=== PATIENT | female | born 1980 | race Caucasian/White ===

== ENCOUNTER 2024-05-14 15:21 | Inpatient (IN) | payer MEDICAID, SELFPAY ==
[2024-05-14 15:22] VITALS: BP 154/97; PULSE 102; RESP 16; TEMP 36.8; O2SAT 97
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
--- NOTE | 2024-05-14 16:07 | PC.PHAR ---
Pt states she takes Risperidone and Trazodone (don't know what strength) and fills them at [facility] in [facility] [phone]. They have no such pt in their system. Pt is not in [facility] system, either.
[2024-05-14 16:18] LABS: Basophils # 0.1 10^3/uL (0.0-0.1); Basophils % 0.7 %; Eosinophils # 0.2 10^3/uL (0.0-0.8); Eosinophils % 2.1 %; Hematocrit 44.1 % (36-47); Lymphocytes # 2.2 10^3/uL (0.8-4.8); Lymphocytes % 21.5 %; Mean Corpuscular HGB Conc 31.1 g/dL (30-55); Mean Platelet Volume 9.3 fL (7.4-10.4); Monocytes # 0.6 10^3/uL (0.2-0.9); Monocytes % 5.7 %; Neutrophils # 7.24 10^3/uL (1.8-7.7); Neutrophils % 69.3 %; Nucleated Red Blood Cells % 0 %; Platelet Count 339 10^3/cmm (157-399); Red Blood Count 5.07 10^6/uL (3.85-5.65); Red Cell Distribution Width 15.4 % (12.1-15.1); White Blood Count 10.44 10^3/uL (3.29-11.43)
[2024-05-14 16:35] LABS: HCG, Serum Qual Negative (Negative)
[2024-05-14 16:36] LABS: Alanine Aminotransferase 11 U/L (0-33); Alkaline Phosphatase 87 U/L (35-105); Anion Gap 14.7 (5-19); Aspartate Amino Transferase 13 U/L (0-32); Blood Urea Nitrogen 12 mg/dL (6-20); Calcium 9.4 mg/dL (8.5-10.5); Carbon Dioxide 24 mmol/L (22-29); Chloride 103 mmol/L (98-107); Globulin 4.1 g/dL (1.3-4.6); Glomerular Filtration Rate 90.5 mL/min (90-130); Glucose 105 mg/dL (65-115); Osmolality Calculated 286 mOsm/kg (285-295); Potassium 3.7 mmol/L (3.5-5.1); Sodium 138 mmol/L (136-145); Total Bilirubin 0.2 mg/dL (0.15-1.2); Total Protein 8.1 g/dL (6.6-8.7)
[2024-05-14 16:39] LABS: Acetaminophen < 5.0 ug/mL (10-30); Alcohol Level < 10 mg/dL (0-10); Salicylate < 0.3 mg/dL (3-10)
[2024-05-14 17:11] VITALS: BP 103/74; PULSE 96; RESP 17; TEMP 37; O2SAT 97
[2024-05-14 17:20] LABS: Amphetamines Screen Urine Negative (Negative); Barbiturates Screen Urine Negative (Negative); Benzodiazepines Screen Urine Negative (Negative); Cocaine Screen Urine Negative (Negative); Opiate Screen Urine Negative (Negative); PCP Screen Urine Negative (Negative); THC Screen Urine Negative (Negative)
[2024-05-14] MEDS: nicotine 2 mg Gum BUCCAL ×2 (17:52→20:19)
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
--- NOTE | 2024-05-14 18:13 | PC.NURSE ---
96 hr rights reviewed with patient @1640 with assistance of [facility] gunnery/ordnance officer Gato Bettencourt All education reviewed. Pt did not seem to fully understand the hold parameters of the 96 hr hold, but verbalized to HS that she did understand when she was asked. Pt copy was left with patient. Pt provided a sandwich, pudding, and soda.
--- NOTE | 2024-05-14 18:33 | PC.NURSE ---
RT order This nurse placed RT order for eval and treat because patient has asthma and states that she uses inhalers at home. Patient unable to tell this nurse what inhalers she uses. Patient has a wet cough. Wheezes heard in lungs.
[2024-05-14] MEDS: hyDROXYzine 25 mg Capsule 50 MG PO (20:19)
[2024-05-14] MEDS: trazodone 100 mg Tablet 200 MG PO (20:19)
[2024-05-14 20:25] VITALS: BP 159/75; PULSE 95; RESP 20; TEMP 36.9; O2SAT 97
[2024-05-14 20:54] LABS: Bilirubin Urine 1+ (Negative); Blood Urine 3+ (Negative); Glucose Urine UA Negative (Normal); Ketones Urine Negative (Negative); Leukocyte Esterase Urine 1+ (Negative); Protein Urine 2+ (Negative); Specific Gravity, Urine 1.014 (1.005-1.030); Urine Appearance Turbid (CLEAR); Urobilinogen Urine 0.2 mg/dL (Negative); pH Urine 8.5 (5-7)
[2024-05-14 20:57] LABS: Add Urine Microscopic? YES; Bacteria Urine 1+ /hpf; Hyaline Casts Urine 0-4 /lpf; RBC Urine >100 /hpf (0-2); Squamous Epithelial Cell Urine 0-5 /hpf (0-5)
[2024-05-14 21:24] LABS: Urine Color Red (Yellow)
[2024-05-14 21:25] LABS: Add Urine Culture? Yes; Nitrate Urine Negative (Negative); UA Slide Review UA Slide Review Perf
[2024-05-14] MEDS: guaiFENesin-dextromethorphan UDC 10 mL PO (21:54)
[2024-05-15 06:00] VITALS: BP 133/69; PULSE 94; RESP 18; TEMP 36.4; O2SAT 98
[2024-05-15] MEDS: nicotine 2 mg Gum BUCCAL ×4 (06:40→16:36)
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
[2024-05-15] MEDS: risperiDONE 2 mg Tablet PO (08:34)
[2024-05-15] MEDS: flu vacc pf 24-25 (6 mos+) SYRINGE 45 MCG IM (08:43)
[2024-05-15 14:00] VITALS: BP 143/82; PULSE 92; RESP 17; TEMP 36.7; O2SAT 98
[2024-05-15 20:11] VITALS: BP 130/76; PULSE 106; RESP 20; TEMP 36.7; O2SAT 99
[2024-05-15] MEDS: trazodone 100 mg Tablet 200 MG PO (20:14)
[2024-05-15] MEDS: nicotine 4 mg lozenge MUCOUS MEM (20:14)
[2024-05-15 22:54] LABS: Adenovirus Not Detected (NOT DETECT); Chlamydia Pneumoniae Not Detected (NOT DETECT); Coronavirus 229E,HKU1,NL63,OC4 Not Detected (NOT DETECT); Human Metapneumovirus Not Detected (NOT DETECT); Human Rhinovirus/Enterovirus Not Detected (NOT DETECT); Influenza A Not Detected (NOT DETECT); Influenza A H1 Not Detected (NOT DETECT); Influenza A H1-2009 Not Detected (NOT DETECT); Influenza A H3 Not Detected (NOT DETECT); Influenza B Not Detected (NOT DETECT); Mycoplasma Pneumoniae Not Detected (NOT DETECT); Parainfluenza Virus Type 1 Not Detected (NOT DETECT); Parainfluenza Virus Type 2 Not Detected (NOT DETECT); Parainfluenza Virus Type 3 Not Detected (NOT DETECT); Parainfluenza Virus Type 4 Not Detected (NOT DETECT); Respiratory Syncytial Virus A Not Detected (NOT DETECT); Respiratory Syncytial Virus B Not Detected (NOT DETECT); SARS-COV-2 Not Detected (NOT DETECT)
[2024-05-16 06:00] VITALS: BP 168/95; PULSE 90; RESP 20; O2SAT 94
[2024-05-16] MEDS: risperiDONE 2 mg Tablet PO (07:58)
[2024-05-16] MEDS: nicotine 4 mg lozenge MUCOUS MEM (08:00)
[2024-05-16] MEDS: nicotine 2 mg Gum BUCCAL ×5 (09:22→22:01)
[2024-05-16] MEDS: paliperidone ER 3 mg Tablet PO (13:09)
[2024-05-16 14:00] VITALS: BP 148/91; PULSE 101; RESP 18; TEMP 36.3; O2SAT 98
--- NOTE | 2024-05-16 20:14 | P.NPUPN_ITS ---
Subjective NPU 2 Subjective: Patient presented today reporting that things are okay. She reports she is having no issues but is open to the medication change. We talked about having a better stop at a good medication plan if we were on the Invega. Spoke to her family about that. She continues to be fairly childlike in her behavior per staff reports and direct observation. She denied any side effects to the medication. Mental Status Exam 2 MSE Comments: This is a morbidly obese white female in hospital scrubs with limited grooming but adequate eye contact. No abnormal movements except for mild psychomotor retardation. Cooperative with exam in mild to moderate distress. Speech was mostly decreased rate and volume. Mood described as anxious, affect is congruent. Thought process, disorganized. Thought content: patient denies suicidal or homicidal ideation, paranoia reported and paranoia and guardedness as well as bizarre thinking noted, she denies current auditory or visual hallucinations. No current thoughts to hurt or kill self or others. No visual hallucinations, delusions, or paranoia reported. Experiences anxiety, particularly in relation to daily activities. Mood reported as good. Stress related to interactions with mother and need for medication. Attention and concentration are intact and memory appeared mostly reliable , but none were formally tested. She is alert and oriented x person. Insight and judgment are impaired. Impulse control is impaired. Vitals/I&O/Wt Last Vital Signs Temp 97.3 F L 05/16/24 14:00 Pulse 101 H 05/16/24 14:00 Resp 18 05/16/24 14:00 BP 148/91 05/16/24 14:00 Pulse Ox 98 05/16/24 14:00 O2 Del Method Room Air 05/16/24 06:00 Data NPU 05/14/24 16:08 05/14/24 16:08 Micro: Microbiology 05/14/24 20:30 Urine Culture - Preliminary Urine,Clean Catch Microbiology 05/14/24 20:30 Urine,Clean Catch Urine Culture - Preliminary A&P Assessment and plan (1) Psychosis: Qualifiers: Psychosis type: unspecified psychosis type Qualified Code(s): F29 - Unspecified psychosis not due to a substance or known physiological condition (2) Mild intellectual disability: (3) Anxiety disorder, unspecified: Plan This is a 43-year-old white woman with a history of intellectual disability and impulse control issues who presents after some aggressive behavior at home. There is a need for medication management, as the patient has been on medications such as Risperdal, trazodone, and Buspar in the past but currently not taking any and is not being seen at a clinic per her report. There is no history of psychiatric hospitalization or outpatient mental health services, and the patient has not engaged with a therapist or counselor previously. The patient is currently on a 96-hour hold, which is set to on May 21, 2024, indicating a need for stabilization and a plan for discharge. There is no evidence of aggression, paranoia, or self-injurious behavior, and the patient denies any current thoughts of self-harm or harm to others. 1. Continue current medications. Discontinue Risperdal and start Invega 3 mg p.o. daily 2. Will obtain collateral information. 3. Continue individual, group and milieu therapy. 4. Continue every 15 minute checks for safety. 5. Will talk to mom for collateral information and to help with medical decision making. Patient's does not have a guardian but appears to have intellectual limitations. Involuntary Hold Information 2 96 Hour Hold: 96 Hour Involuntary Admission: Yes 96 Hour Hold Ending Date: 05/21/24 96 Hour Hold Ending Time: 15:24 Other Hold: Hold End Date: 05/21/24 Attestations NPU 2 Medical Necessity Statement*: Inpatient hospitalization is medically necessary and the clinically appropriate intervention at this time. We will monitor medications and make changes as indicated. Likely length of stay is 5-7 days. Coding Level of Care Code Acute Code for g Fwd Diagnoses Psychosis F29 Psychosis type: unspecified psychosis type Mild intellectual disability F70 Anxiety disorder, unspecified F41.9
[2024-05-16 20:21] VITALS: BP 138/94; PULSE 105; RESP 18; TEMP 36.6; O2SAT 97
[2024-05-16] MEDS: trazodone 100 mg Tablet 200 MG PO (22:01)
[2024-05-17 05:45] VITALS: BP 153/95; PULSE 96; RESP 18; TEMP 36.8; O2SAT 96
[2024-05-17] MEDS: paliperidone ER 3 mg Tablet PO (08:09)
[2024-05-17] MEDS: nicotine 4 mg lozenge MUCOUS MEM ×4 (08:09→17:44)
[2024-05-17] MEDS: guaiFENesin-dextromethorphan UDC 10 mL PO (08:09)
[2024-05-17 14:00] VITALS: BP 141/89; PULSE 91; RESP 16; TEMP 36.6; O2SAT 97
--- NOTE | 2024-05-17 18:41 | P.NPUPN_ITS ---
Subjective NPU 2 Subjective: Patient presented today reporting that she is doing much better. She endorsed having significant challenges related to conflicts at home but reports that things are feeling much better and that the medication seems to be effective. She reports that she likes the way this medication feels in comparison to her last medication. She denied any side effects. Mental Status Exam 2 MSE Comments: This is a morbidly obese white female in hospital scrubs with limited grooming but adequate eye contact. No abnormal movements except for mild psychomotor retardation. Cooperative with exam in mild to moderate distress. Speech was mostly decreased rate and volume. Mood described as anxious, affect is congruent. Thought process, disorganized. Thought content: patient denies suicidal or homicidal ideation, paranoia reported and paranoia and guardedness as well as bizarre thinking noted, she denies current auditory or visual hallucinations. No current thoughts to hurt or kill self or others. No visual hallucinations, delusions, or paranoia reported. Experiences anxiety, particularly in relation to daily activities. Mood reported as good. Stress related to interactions with mother and need for medication. Attention and concentration are intact and memory appeared mostly reliable , but none were formally tested. She is alert and oriented x person. Insight and judgment are impaired. Impulse control is impaired. Vitals/I&O/Wt Last Vital Signs Temp 98 F 05/17/24 14:00 Pulse 91 05/17/24 14:00 Resp 16 05/17/24 14:00 BP 141/89 05/17/24 14:00 Pulse Ox 97 05/17/24 14:00 O2 Del Method Room Air 05/17/24 14:00 Data NPU 05/14/24 16:08 05/14/24 16:08 Micro: Microbiology 05/14/24 20:30 Urine Culture - Final Urine,Clean Catch Microbiology 05/14/24 20:30 Urine,Clean Catch Urine Culture - Final A&P Assessment and plan (1) Psychosis: Qualifiers: Psychosis type: unspecified psychosis type Qualified Code(s): F29 - Unspecified psychosis not due to a substance or known physiological condition (2) Mild intellectual disability: (3) Anxiety disorder, unspecified: Plan This is a 43-year-old white woman with a history of intellectual disability and impulse control issues who presents after some aggressive behavior at home. There is a need for medication management, as the patient has been on medications such as Risperdal, trazodone, and Buspar in the past but currently not taking any and is not being seen at a clinic per her report. There is no history of psychiatric hospitalization or outpatient mental health services, and the patient has not engaged with a therapist or counselor previously. The patient is currently on a 96-hour hold, which is set to on May 21, 2024, indicating a need for stabilization and a plan for discharge. There is no evidence of aggression, paranoia, or self-injurious behavior, and the patient denies any current thoughts of self-harm or harm to others. 1. Continue current medications. Discontinue Risperdal and start Invega 3 mg p.o. daily 2. Will obtain collateral information. 3. Continue individual, group and milieu therapy. 4. Continue every 15 minute checks for safety. 5. Will talk to mom for collateral information and to help with medical decision making. Patient's does not have a guardian but appears to have intellectual limitations. Involuntary Hold Information 2 96 Hour Hold: 96 Hour Involuntary Admission: Yes 96 Hour Hold Ending Date: 05/21/24 96 Hour Hold Ending Time: 15:24 Other Hold: Hold End Date: 05/21/24 Attestations NPU 2 Medical Necessity Statement*: Inpatient hospitalization is medically necessary and the clinically appropriate intervention at this time. We will monitor medications and make changes as indicated. Likely length of stay is 5-7 days. Coding Level of Care Code Acute Code for Chg Fwd Diagnoses Psychosis F29 Psychosis type: unspecified psychosis type Mild intellectual disability F70 Anxiety disorder, unspecified F41.9
[2024-05-17 20:59] VITALS: BP 137/76; PULSE 95; RESP 18; O2SAT 97
[2024-05-17] MEDS: trazodone 100 mg Tablet 200 MG PO (21:49)
[2024-05-18] MEDS: nicotine 4 mg lozenge MUCOUS MEM (03:26)
[2024-05-18 06:00] VITALS: BP 108/70; PULSE 98; RESP 18; TEMP 36.8; O2SAT 96
[2024-05-18] MEDS: paliperidone ER 3 mg Tablet PO (09:02)
[2024-05-18] MEDS: cetylpyridinium Lozenge 1 EACH MUCOUS MEM (12:41)
[2024-05-18 14:00] VITALS: BP 154/80; PULSE 90; RESP 16; TEMP 37.1; O2SAT 98
--- NOTE | 2024-05-18 15:28 | P.NPUPN_ITS ---
Subjective NPU 2 Subjective: Patient presented reporting that she is doing much better. We discussed talking with her mother to see how she feels she is doing. She reports she feels that the medication is working really well. We discussed the possibility of discharge at the beginning of the week. She denied any side effects to her medication. Mental Status Exam 2 MSE Comments: This is a morbidly obese white female in hospital scrubs with limited grooming but adequate eye contact. No abnormal movements except for mild psychomotor retardation. Cooperative with exam in mild to moderate distress. Speech was mostly decreased rate and volume. Mood described as better, affect is congruent. Thought process, more organized. Thought content: patient denies suicidal or homicidal ideation, no delusions reported or noted, she denies current auditory or visual hallucinations. No current thoughts to hurt or kill self or others. No visual hallucinations, delusions, or paranoia reported. Experiences anxiety, particularly in relation to daily activities. Mood reported as good. Stress related to interactions with mother and need for medication. Attention and concentration are intact and memory appeared mostly reliable , but none were formally tested. She is alert and oriented x person. Insight and judgment are impaired. Impulse control is impaired. Vitals/I&O/Wt Last Vital Signs Temp 98.8 F 05/18/24 14:00 Pulse 90 05/18/24 14:00 Resp 16 05/18/24 14:00 BP 154/80 05/18/24 14:00 Pulse Ox 98 05/18/24 14:00 O2 Del Method Room Air 05/18/24 14:00 Data NPU 05/14/24 16:08 05/14/24 16:08 Micro: Microbiology 05/14/24 20:30 Urine Culture - Final Urine,Clean Catch Microbiology 05/14/24 20:30 Urine,Clean Catch Urine Culture - Final A&P Assessment and plan (1) Psychosis: Qualifiers: Psychosis type: unspecified psychosis type Qualified Code(s): F29 - Unspecified psychosis not due to a substance or known physiological condition (2) Mild intellectual disability: (3) Anxiety disorder, unspecified: Plan This is a 43-year-old white woman with a history of intellectual disability and impulse control issues who presents after some aggressive behavior at home. There is a need for medication management, as the patient has been on medications such as Risperdal, trazodone, and Buspar in the past but currently not taking any and is not being seen at a clinic per her report. There is no history of psychiatric hospitalization or outpatient mental health services, and the patient has not engaged with a therapist or counselor previously. The patient is currently on a 96-hour hold, which is set to on May 21, 2024, indicating a need for stabilization and a plan for discharge. There is no evidence of aggression, paranoia, or self-injurious behavior, and the patient denies any current thoughts of self-harm or harm to others. 1. Continue current medications. Discontinue Risperdal and started Invega 3 mg p.o. daily 2. Will obtain collateral information. 3. Continue individual, group and milieu therapy. 4. Continue every 15 minute checks for safety. 5. Will talk to mom for collateral information and to help with medical decision making. Patient's does not have a guardian but appears to have intellectual limitations. Involuntary Hold Information 2 96 Hour Hold: 96 Hour Involuntary Admission: Yes 96 Hour Hold Ending Date: 05/21/24 96 Hour Hold Ending Time: 15:24 Other Hold: Hold End Date: 05/21/24 Attestations NPU 2 Medical Necessity Statement*: Inpatient hospitalization is medically necessary and the clinically appropriate intervention at this time. We will monitor medications and make changes as indicated. Likely length of stay is 2-4 days. Coding Level of Care Code Acute Code for Chg Fwd Diagnoses Psychosis F29 Psychosis type: unspecified psychosis type Mild intellectual disability F70 Anxiety disorder, unspecified F41.9
[2024-05-18] MEDS: nicotine 2 mg Gum BUCCAL ×3 (15:31→20:34)
[2024-05-18 19:59] VITALS: BP 173/95; PULSE 89; RESP 18; TEMP 36.7; O2SAT 99
[2024-05-18] MEDS: trazodone 100 mg Tablet 200 MG PO (20:34)
[2024-05-18] MEDS: hyDROXYzine 25 mg Capsule 50 MG PO (20:34)
[2024-05-18] MEDS: guaiFENesin-dextromethorphan UDC 10 mL PO (20:34)
[2024-05-19 05:41] VITALS: BMI 50.2
[2024-05-19 06:00] VITALS: BP 131/84; PULSE 117; RESP 18; TEMP 36.4; O2SAT 92
--- NOTE | 2024-05-19 08:05 | PC.NURSE ---
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 THEN PT STARTED TALKING ABOUT THAT WHEN SHE DREAMED ABOUT [facility] LAST NIGHT AND WHAT THEY WERE DOING. THEN STATED THAT SHE WAS TELLING THE YOUNG BOYS NOT TO GET NEXT TO HER BECAUSE SHE COULD GET AND YOU KNOW THE GAME WHERE THEY COME UP AND TELL YOU THEY ARE GETTING YOU AND YOU SAY WELL I AM WEARING A SKIRT AND YOU LIFT IT UP SHOWING THEM YOUR BOOBS WELL THEN MY NO BOY SHOWED UP AND GOT INBETWEEN ME AND HIM SO ALL WAS GOOD AND I DIDNT HAVE TO GET . 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 PT DIDN'T GIVE A NAME FOR THE BABY.
[2024-05-19] MEDS: paliperidone ER 3 mg Tablet PO ×2 (08:34→18:39)
[2024-05-19] MEDS: nicotine 4 mg lozenge MUCOUS MEM ×4 (08:48→17:44)
--- NOTE | 2024-05-19 10:35 | P.NPUPN_ITS ---
Subjective NPU 2 Subjective: Patient presented today reporting that she is feeling better. She appears to be more optimistic and less irritable per staff reports and direct observation. Her mother reports continued concerns for her saying things that she knows are not based in reality but we also have concerns that her intellectual challenges might be the basis for those errant comments and not clear disorganization or psychosis. She might be speaking to how she would like things to be and not how they are. Sometimes expanding about having a relationship for kids or something currently. We discussed the risks, benefits and alternatives of increasing her Invega to 6 mg p.o. daily and she understood and agreed to proceed as is documented in this note. She denied any side effects of medication. Mental Status Exam 2 MSE Comments: This is a morbidly obese white female in hospital scrubs with limited grooming but adequate eye contact. No abnormal movements except for mild psychomotor retardation. Cooperative with exam in mild to moderate distress. Speech was mostly decreased rate and volume. Mood described as better, affect is congruent. Thought process, more organized. Thought content: patient denies suicidal or homicidal ideation, no delusions reported or noted, she denies current auditory or visual hallucinations. No current thoughts to hurt or kill self or others. No visual hallucinations, delusions, or paranoia reported. Experiences anxiety, particularly in relation to daily activities. Mood reported as good. Stress related to interactions with mother and need for medication. Attention and concentration are intact and memory appeared mostly reliable , but none were formally tested. She is alert and oriented x person. Insight and judgment are impaired. Impulse control is impaired. Vitals/I&O/Wt Last Vital Signs Temp 97.6 F 05/19/24 06:00 Pulse 117 H 05/19/24 06:00 Resp 18 05/19/24 06:00 BP 131/84 05/19/24 06:00 Pulse Ox 92 05/19/24 06:00 O2 Del Method Room Air 05/18/24 14:00 Weight last 48 hrs Weight 136.985 kg Data NPU 05/14/24 16:08 05/14/24 16:08 A&P Assessment and plan (1) Psychosis: Qualifiers: Psychosis type: unspecified psychosis type Qualified Code(s): F29 - Unspecified psychosis not due to a substance or known physiological condition (2) Mild intellectual disability: (3) Anxiety disorder, unspecified: Plan This is a 43-year-old white woman with a history of intellectual disability and impulse control issues who presents after some aggressive behavior at home. There is a need for medication management, as the patient has been on medications such as Risperdal, trazodone, and Buspar in the past but currently not taking any and is not being seen at a clinic per her report. There is no history of psychiatric hospitalization or outpatient mental health services, and the patient has not engaged with a therapist or counselor previously. The patient is currently on a 96-hour hold, which is set to on May 21, 2024, indicating a need for stabilization and a plan for discharge. There is no evidence of aggression, paranoia, or self-injurious behavior, and the patient denies any current thoughts of self-harm or harm to others. 1. Continue current medications. Discontinue Risperdal and started Invega 3 mg p.o. daily. Increase Invega to 6 mg p.o. daily. 2. Will obtain collateral information. 3. Continue individual, group and milieu therapy. 4. Continue every 15 minute checks for safety. 5. Will talk to mom for collateral information and to help with medical decision making. Patient's does not have a guardian but appears to have intellectual limitations. Involuntary Hold Information 2 96 Hour Hold: 96 Hour Involuntary Admission: Yes 96 Hour Hold Ending Date: 05/21/24 96 Hour Hold Ending Time: 15:24 Other Hold: Hold End Date: 05/21/24 Attestations NPU 2 Medical Necessity Statement*: Inpatient hospitalization is medically necessary and the clinically appropriate intervention at this time. We will monitor medications and make changes as indicated. Likely length of stay is 1-3 days. Coding Level of Care Code Acute Code for Chg Fwd Diagnoses Psychosis F29 Psychosis type: unspecified psychosis type Mild intellectual disability F70 Anxiety disorder, unspecified F41.9
[2024-05-19 13:45] VITALS: BP 154/92; PULSE 97; RESP 16; O2SAT 100
[2024-05-19] MEDS: cetylpyridinium Lozenge 1 EACH MUCOUS MEM (16:32)
[2024-05-19] MEDS: trazodone 100 mg Tablet 200 MG PO (20:39)
[2024-05-19] MEDS: hyDROXYzine 25 mg Capsule 50 MG PO (20:39)
[2024-05-19] MEDS: nicotine 2 mg Gum BUCCAL (20:40)
[2024-05-19 21:21] VITALS: BP 135/85; PULSE 99; RESP 18; TEMP 36.7; O2SAT 95
[2024-05-19] MEDS: guaiFENesin-dextromethorphan UDC 10 mL PO (21:26)
[2024-05-20 06:00] VITALS: BP 183/83; PULSE 93; RESP 16; TEMP 36.5; O2SAT 98
--- NOTE | 2024-05-20 07:48 | PC.NURSE ---
during morning shift assessment pt was asked about her children pt stated Jayson was 17 or 18 years old but I don't know he is staying with some friends who do not have allot of money and they eat tortilla and burritos play playstation all day. when asked by this undercoat sprayer about what grade he was in pt stated when she came to [place] she paid for him to go to school at home and you it was 35thousand dollars, she got off her greencard and he graduated with you know a diploma or you know a GED asked pt wow that is allot of money pt stated yeah but he has graduated and Indra he is like 18 or 19 an he stays with his girlfriend an then her boyfriend comes over they say he gets upset because the boy is here to see his exgirlfriend. asked pt if she was anxious pt stated no no no not anxious at all then did a shauna watters not anxious.
[2024-05-20] MEDS: paliperidone ER 3 mg Tablet 6 MG PO (08:05)
[2024-05-20] MEDS: nicotine 4 mg lozenge MUCOUS MEM ×6 (08:05→20:55)
--- NOTE | 2024-05-20 13:32 | W.PM.NPUPNS ---
Subjective NPU Subjective: Patient presented today reporting that she is doing a little better. She was made aware that the plan for possible discharge was changed and we discussed the risks, benefits and alternatives of the Invega Sustenna and she understood and agreed to proceed as is documented in this note. We discussed that we would plan for discharge after she gets her next injection which is due in a week but we will be able to give 3 days early on Monday prior to discharge. She denied any side effects of the medication. Mental Status Exam MSE Comments: This is a morbidly obese white female in hospital scrubs with limited grooming but adequate eye contact. No abnormal movements except for mild psychomotor retardation. Cooperative with exam in mild to moderate distress. Speech was mostly decreased rate and volume. Mood described as better, affect is congruent. Thought process, more organized. Thought content: patient denies suicidal or homicidal ideation, no delusions reported or noted, she denies current auditory or visual hallucinations. No current thoughts to hurt or kill self or others. No visual hallucinations, delusions, or paranoia reported. Experiences anxiety, particularly in relation to daily activities. Mood reported as good. Stress related to interactions with mother and need for medication. Attention and concentration are intact and memory appeared mostly reliable , but none were formally tested. She is alert and oriented x person. Insight and judgment are impaired. Impulse control is impaired. Vitals/I&O/Wt Last Vital Signs Temp 97.7 F 05/20/24 06:00 Pulse 93 05/20/24 06:00 Resp 16 05/20/24 06:00 BP 183/83 05/20/24 06:00 Pulse Ox 98 05/20/24 06:00 O2 Del Method Room Air 05/19/24 13:45 Weight last 48 hrs Weight 136.985 kg Data NPU 05/14/24 16:08 05/14/24 16:08 A&P Assessment and plan (1) Psychosis: Qualifiers: Psychosis type: unspecified psychosis type Qualified Code(s): F29 - Unspecified psychosis not due to a substance or known physiological condition (2) Mild intellectual disability: (3) Anxiety disorder, unspecified: Plan This is a 43-year-old white woman with a history of intellectual disability and impulse control issues who presents after some aggressive behavior at home. There is a need for medication management, as the patient has been on medications such as Risperdal, trazodone, and Buspar in the past but currently not taking any and is not being seen at a clinic per her report. There is no history of psychiatric hospitalization or outpatient mental health services, and the patient has not engaged with a therapist or counselor previously. The patient is currently on a 96-hour hold, which is set to on May 21, 2024, indicating a need for stabilization and a plan for discharge. There is no evidence of aggression, paranoia, or self-injurious behavior, and the patient denies any current thoughts of self-harm or harm to others. 1. Continue current medications. Discontinue Risperdal and started Invega 3 mg p.o. daily. Increase Invega to 6 mg p.o. daily. Invega Sustenna 234 mg IM injection given today and we will give the second loading dose on Monday prior to discharge. 2. Will obtain collateral information. 3. Continue individual, group and milieu therapy. 4. Continue every 15 minute checks for safety. 5. Will talk to mom for collateral information and to help with medical decision making. Patient's does not have a guardian but appears to have intellectual limitations. Involuntary Hold Information 96 Hour Hold: 96 Hour Involuntary Admission: Yes 96 Hour Hold Ending Date: 05/21/24 96 Hour Hold Ending Time: 15:24 Other Hold: Hold End Date: 05/21/24 Attestations U Medical Necessity Statement*: Inpatient hospitalization is medically necessary and the clinically appropriate intervention at this time. We will monitor medications and make changes as indicated. Likely length of stay is 4 days. Coding Level of Care Code Acute Code for [facility] Fwd Diagnoses Psychosis F29 Psychosis type: unspecified psychosis type Mild intellectual disability F70 Anxiety disorder, unspecified F41.9
[2024-05-20 14:00] VITALS: BP 144/103; PULSE 108; RESP 16; TEMP 37.1; O2SAT 100
[2024-05-20 20:43] VITALS: BP 141/71; PULSE 94; RESP 16; TEMP 36.6; O2SAT 94
[2024-05-20] MEDS: guaiFENesin-dextromethorphan UDC 10 mL PO (20:54)
[2024-05-20] MEDS: trazodone 100 mg Tablet 200 MG PO (20:54)
[2024-05-20] MEDS: hyDROXYzine 25 mg Capsule 50 MG PO (20:55)
[2024-05-20] MEDS: cetylpyridinium Lozenge 1 EACH MUCOUS MEM (21:44)
[2024-05-21 05:23] VITALS: BP 137/89; PULSE 100; RESP 16; TEMP 36.3; O2SAT 98
[2024-05-21] MEDS: paliperidone ER 3 mg Tablet 6 MG PO (09:43)
[2024-05-21] MEDS: nicotine 4 mg lozenge MUCOUS MEM ×4 (09:43→21:32)
[2024-05-21 14:00] VITALS: BP 121/83; PULSE 93; RESP 16; TEMP 36.6; O2SAT 100
--- NOTE | 2024-05-21 16:28 | P.NPUPN_ITS ---
Subjective NPU 2 Subjective: Patient presented today reporting that she is doing okay. We discussed the fact that the first loading dose of Invega Sustenna was not available but should be available tomorrow which will push back our plan by day. We reached out to mom and make sure that she understood that fact as well. Otherwise she reports that she is doing fine on the medication she denied any side effects and reports she looks forward to being able to leave after taking the medication. Mental Status Exam 2 MSE Comments: This is a morbidly obese white female in hospital scrubs with limited grooming but adequate eye contact. No abnormal movements except for mild psychomotor retardation. Cooperative with exam in mild to moderate distress. Speech was mostly decreased rate and volume. Mood described as better, affect is congruent. Thought process, more organized. Thought content: patient denies suicidal or homicidal ideation, no delusions reported or noted, she denies current auditory or visual hallucinations. No current thoughts to hurt or kill self or others. No visual hallucinations, delusions, or paranoia reported. Experiences anxiety, particularly in relation to daily activities. Mood reported as good. Stress related to interactions with mother and need for medication. Attention and concentration are intact and memory appeared mostly reliable , but none were formally tested. She is alert and oriented x person. Insight and judgment are impaired. Impulse control is impaired. Vitals/I&O/Wt Last Vital Signs Temp 98 F 05/21/24 14:00 Pulse 93 05/21/24 14:00 Resp 16 05/21/24 14:00 BP 121/83 05/21/24 14:00 Pulse Ox 100 05/21/24 14:00 O2 Del Method Room Air 05/21/24 14:00 Data NPU 05/14/24 16:08 05/14/24 16:08 A&P Assessment and plan (1) Psychosis: Qualifiers: Psychosis type: unspecified psychosis type Qualified Code(s): F29 - Unspecified psychosis not due to a substance or known physiological condition (2) Mild intellectual disability: (3) Anxiety disorder, unspecified: Plan This is a 43-year-old white woman with a history of intellectual disability and impulse control issues who presents after some aggressive behavior at home. There is a need for medication management, as the patient has been on medications such as Risperdal, trazodone, and Buspar in the past but currently not taking any and is not being seen at a clinic per her report. There is no history of psychiatric hospitalization or outpatient mental health services, and the patient has not engaged with a therapist or counselor previously. The patient is currently on a 96-hour hold, which is set to on May 21, 2024, indicating a need for stabilization and a plan for discharge. There is no evidence of aggression, paranoia, or self-injurious behavior, and the patient denies any current thoughts of self-harm or harm to others. 1. Continue current medications. Discontinue Risperdal and started Invega 3 mg p.o. daily. Increase Invega to 6 mg p.o. daily. Invega Sustenna 234 mg IM injection given today and we will give the second loading dose on Monday prior to discharge. 2. Will obtain collateral information. 3. Continue individual, group and milieu therapy. 4. Continue every 15 minute checks for safety. 5. Will talk to mom for collateral information and to help with medical decision making. Patient's does not have a guardian but appears to have intellectual limitations. Involuntary Hold Information 2 96 Hour Hold: 96 Hour Involuntary Admission: Yes 96 Hour Hold Ending Date: 05/21/24 96 Hour Hold Ending Time: 15:24 Other Hold: Hold End Date: 05/21/24 Attestations NPU 2 Medical Necessity Statement*: Inpatient hospitalization is medically necessary and the clinically appropriate intervention at this time. We will monitor medications and make changes as indicated. Likely length of stay is 4 days. Coding Level of Care Code Acute Code for g Fwd Diagnoses Psychosis F29 Psychosis type: unspecified psychosis type Mild intellectual disability F70 Anxiety disorder, unspecified F41.9
[2024-05-21 20:08] VITALS: BP 141/87; PULSE 101; RESP 18; O2SAT 97
[2024-05-21] MEDS: trazodone 100 mg Tablet 200 MG PO (21:31)
[2024-05-22] MEDS: nicotine 2 mg Gum BUCCAL ×5 (03:52→15:06)
[2024-05-22 06:15] VITALS: BP 129/86; PULSE 94; RESP 18; TEMP 36.7; O2SAT 99
--- NOTE | 2024-05-22 08:00 | P.NPUPN_ITS ---
Subjective NPU 2 Subjective: Patient presented today reporting that she is doing okay. We discussed the fact that the first loading dose of Invega Sustenna was available which will push back our plan for discharge by day. Otherwise she reports that she is doing fine on the medication she denied any side effects and reports she looks forward to being able to leave after taking the medication. Mental Status Exam 2 MSE Comments: This is a morbidly obese white female in hospital scrubs with limited grooming but adequate eye contact. No abnormal movements except for mild psychomotor retardation. Cooperative with exam in mild to moderate distress. Speech was mostly decreased rate and volume. Mood described as better, affect is congruent. Thought process, more organized. Thought content: patient denies suicidal or homicidal ideation, no delusions reported or noted, she denies current auditory or visual hallucinations. No current thoughts to hurt or kill self or others. No visual hallucinations, delusions, or paranoia reported. Experiences anxiety, particularly in relation to daily activities. Mood reported as good. Stress related to interactions with mother and need for medication. Attention and concentration are intact and memory appeared mostly reliable , but none were formally tested. She is alert and oriented x person. Insight and judgment are impaired. Impulse control is impaired. 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 There is a need for medication management, as the patient has been on medications such as Risperdal, trazodone, and Buspar in the past but currently not taking any and is not being seen at a clinic per her report. There is no history of psychiatric hospitalization or outpatient mental health services, and the patient has not engaged with a therapist or counselor previously. The patient is currently on a 96-hour hold, which is set to on May 21, 2024, indicating a need for stabilization and a plan for discharge. There is no evidence of aggression, paranoia, or self-injurious behavior, and the patient denies any current thoughts of self-harm or harm to others. 1. Continue current medications. Discontinue Risperdal and started Invega 3 mg p.o. daily. Increase Invega to 6 mg p.o. daily. Invega Sustenna 234 mg IM injection given today and we will give the second loading dose on Monday prior to discharge. 2. Will obtain collateral information. 3. Continue individual, group and milieu therapy. 4. Continue every 15 minute checks for safety. 5. Will talk to mom for collateral information and to help with medical decision making. Patient's does not have a guardian but appears to have intellectual limitations. Involuntary Hold Information 2 96 Hour Hold: 96 Hour Involuntary Admission: Yes 96 Hour Hold Ending Date: 05/21/24 96 Hour Hold Ending Time: 15:24 Other Hold: Hold End Date: 05/21/24 Attestations NPU 2 Medical Necessity Statement*: Inpatient hospitalization is medically necessary and the clinically appropriate intervention at this time. We will monitor medications and make changes as indicated. Likely length of stay is 4 days. Coding Level of Care Code Acute Code for Chg Fwd Diagnoses Psychosis F29 Psychosis type: unspecified psychosis type Mild intellectual disability F70 Anxiety disorder, unspecified F41.9
[2024-05-22] MEDS: paliperidone ER 3 mg Tablet 6 MG PO (09:10)
[2024-05-22] MEDS: paliperidone palmitate 234 mg Syringe IM (13:31)
[2024-05-22 14:00] VITALS: BP 164/100; PULSE 101; RESP 18; TEMP 36.4; O2SAT 100
--- NOTE | 2024-05-22 16:23 | PC.NURSE ---
Administered Invega Sustenna 234mg Injection to pt's right deltoid, pt tolerated well.
[2024-05-22 20:08] VITALS: BP 139/87; PULSE 91; RESP 20; TEMP 36.7; O2SAT 100
[2024-05-22] MEDS: nicotine 4 mg lozenge MUCOUS MEM (22:03)
[2024-05-22] MEDS: trazodone 100 mg Tablet 200 MG PO (22:03)
[2024-05-22] MEDS: hyDROXYzine 25 mg Capsule 50 MG PO (22:03)
[2024-05-23 06:15] VITALS: BP 120/80; PULSE 118; RESP 18; TEMP 36.8; O2SAT 97
[2024-05-23] MEDS: paliperidone ER 3 mg Tablet 6 MG PO (08:04)
[2024-05-23] MEDS: nicotine 4 mg lozenge MUCOUS MEM ×3 (08:04→17:26)
[2024-05-23 14:00] VITALS: BP 156/74; PULSE 74; RESP 16; TEMP 36.6; O2SAT 98
--- NOTE | 2024-05-23 16:17 | P.NPUPN_ITS ---
Subjective NPU 2 Subjective: Presented today reporting that things are going decent. She denied any issues with the injection yesterday and just question the process. We once again agree that we would monitor her over the next few days and give her the second loading dose on the earliest date possible which would be Monday and after she received that medication discharge would be the plan. She denied any side effects of the medication. Mental Status Exam 2 MSE Comments: This is a morbidly obese white female in hospital scrubs with limited grooming but adequate eye contact. No abnormal movements except for mild psychomotor retardation. Cooperative with exam in mild to moderate distress. Speech was mostly decreased rate and volume. Mood described as better, affect is congruent. Thought process, more organized. Thought content: patient denies suicidal or homicidal ideation, no delusions reported or noted, she denies current auditory or visual hallucinations. No current thoughts to hurt or kill self or others. No visual hallucinations, delusions, or paranoia reported. Experiences anxiety, particularly in relation to daily activities. Mood reported as good. Stress related to interactions with mother and need for medication. Attention and concentration are intact and memory appeared mostly reliable , but none were formally tested. She is alert and oriented x person. Insight and judgment are impaired. Impulse control is impaired. Vitals/I&O/Wt Last Vital Signs Temp 98 F 05/23/24 14:00 Pulse 74 05/23/24 14:00 Resp 16 05/23/24 14:00 BP 156/74 05/23/24 14:00 Pulse Ox 98 05/23/24 14:00 O2 Del Method Room Air 05/23/24 14:00 Data NPU 05/14/24 16:08 05/14/24 16:08 A&P Assessment and plan (1) Psychosis: Qualifiers: Psychosis type: unspecified psychosis type Qualified Code(s): F29 - Unspecified psychosis not due to a substance or known physiological condition (2) Mild intellectual disability: (3) Anxiety disorder, unspecified: Plan This is a 43-year-old white woman with a history of intellectual disability and impulse control issues who presents after some aggressive behavior at home. There is a need for medication management, as the patient has been on medications such as Risperdal, trazodone, and Buspar in the past but currently not taking any and is not being seen at a clinic per her report. There is no history of psychiatric hospitalization or outpatient mental health services, and the patient has not engaged with a therapist or counselor previously. The patient is currently on a 96-hour hold, which is set to on May 21, 2024, indicating a need for stabilization and a plan for discharge. There is no evidence of aggression, paranoia, or self-injurious behavior, and the patient denies any current thoughts of self-harm or harm to others. 1. Continue current medications. Discontinue Risperdal and started Invega 3 mg p.o. daily. Increase Invega to 6 mg p.o. daily. Invega Sustenna 234 mg IM injection given yesterday and we will give the second loading dose on Monday prior to discharge. 2. Will obtain collateral information. 3. Continue individual, group and milieu therapy. 4. Continue every 15 minute checks for safety. 5. Will talk to mom for collateral information and to help with medical decision making. Patient's does not have a guardian but appears to have intellectual limitations. Involuntary Hold Information 2 96 Hour Hold: 96 Hour Involuntary Admission: Yes 96 Hour Hold Ending Date: 05/21/24 96 Hour Hold Ending Time: 15:24 Other Hold: Hold End Date: 05/24/24 Attestations NPU 2 Medical Necessity Statement*: Inpatient hospitalization is medically necessary and the clinically appropriate intervention at this time. We will monitor medications and make changes as indicated. Likely length of stay is 3 days. Coding Level of Care Code Acute Code for Chg Fwd Diagnoses Psychosis F29 Psychosis type: unspecified psychosis type Mild intellectual disability F70 Anxiety disorder, unspecified F41.9
[2024-05-23 20:53] VITALS: BP 135/88; PULSE 106; RESP 20; TEMP 36.6; O2SAT 100
[2024-05-23] MEDS: trazodone 100 mg Tablet 200 MG PO (21:32)
[2024-05-24] MEDS: nicotine 4 mg lozenge MUCOUS MEM ×7 (04:40→22:59)
[2024-05-24 06:15] VITALS: BP 120/60; PULSE 92; RESP 18; TEMP 36.4; O2SAT 100
[2024-05-24] MEDS: paliperidone ER 3 mg Tablet 6 MG PO (07:28)
--- NOTE | 2024-05-24 12:56 | PC.NURSE ---
NEW ORDERS RECEIVED TO GIVE SECOND INJECTION OF INVEGA ON May AT 0900 AM, ORDERS PLACED FOR INVEGA 156 MG IM ON 05/26/24. PT EDUCATED ON NEW ORDERS. VERBALIZED UNDERSTANDING.
[2024-05-24 14:00] VITALS: BP 145/92; PULSE 101; RESP 16; TEMP 36.6; O2SAT 100
--- NOTE | 2024-05-24 17:22 | P.NPUPN_ITS ---
Subjective NPU 2 Subjective: Patient presented today reporting that she is doing fine. She endorses that she is managing her medications and denying any side effects. We discussed the continued plan for discharge on Monday morning after she is gotten her second injection of Invega Sustenna. Staff deny any significant reports of concerns. Mental Status Exam 2 MSE Comments: This is a morbidly obese white female in hospital scrubs with limited grooming but adequate eye contact. No abnormal movements except for mild psychomotor retardation. Cooperative with exam in mild to moderate distress. Speech was mostly decreased rate and volume. Mood described as better, affect is congruent. Thought process, more organized. Thought content: patient denies suicidal or homicidal ideation, no delusions reported or noted, she denies current auditory or visual hallucinations. No current thoughts to hurt or kill self or others. No visual hallucinations, delusions, or paranoia reported. Experiences anxiety, particularly in relation to daily activities. Mood reported as good. Stress related to interactions with mother and need for medication. Attention and concentration are intact and memory appeared mostly reliable , but none were formally tested. She is alert and oriented x person. Insight and judgment are impaired. Impulse control is impaired. Vitals/I&O/Wt Last Vital Signs Temp 97.9 F 05/24/24 14:00 Pulse 101 H 05/24/24 14:00 Resp 16 05/24/24 14:00 BP 145/92 05/24/24 14:00 Pulse Ox 100 05/24/24 14:00 O2 Del Method Room Air 05/24/24 14:00 Data NPU 05/14/24 16:08 05/14/24 16:08 A&P Assessment and plan (1) Psychosis: Qualifiers: Psychosis type: unspecified psychosis type Qualified Code(s): F29 - Unspecified psychosis not due to a substance or known physiological condition (2) Mild intellectual disability: (3) Anxiety disorder, unspecified: Plan This is a 43-year-old white woman with a history of intellectual disability and impulse control issues who presents after some aggressive behavior at home. There is a need for medication management, as the patient has been on medications such as Risperdal, trazodone, and Buspar in the past but currently not taking any and is not being seen at a clinic per her report. There is no history of psychiatric hospitalization or outpatient mental health services, and the patient has not engaged with a therapist or counselor previously. The patient is currently on a 96-hour hold, which is set to on May 21, 2024, indicating a need for stabilization and a plan for discharge. There is no evidence of aggression, paranoia, or self-injurious behavior, and the patient denies any current thoughts of self-harm or harm to others. 1. Continue current medications. Discontinue Risperdal and started Invega 3 mg p.o. daily. Increase Invega to 6 mg p.o. daily. Invega Sustenna 234 mg IM injection given yesterday and we will give the second loading dose on Monday prior to discharge. 2. Will obtain collateral information. 3. Continue individual, group and milieu therapy. 4. Continue every 15 minute checks for safety. 5. Will talk to mom for collateral information and to help with medical decision making. Patient's does not have a guardian but appears to have intellectual limitations. Involuntary Hold Information 2 96 Hour Hold: 96 Hour Involuntary Admission: Yes 96 Hour Hold Ending Date: 05/21/24 96 Hour Hold Ending Time: 15:24 Other Hold: Hold End Date: 05/24/24 Attestations NPU 2 Medical Necessity Statement*: Inpatient hospitalization is medically necessary and the clinically appropriate intervention at this time. We will monitor medications and make changes as indicated. Likely length of stay is 2 days. Coding Level of Care Code Acute Code for Chg Fwd Diagnoses Psychosis F29 Psychosis type: unspecified psychosis type Mild intellectual disability F70 Anxiety disorder, unspecified F41.9
[2024-05-24] MEDS: nicotine 2 mg Gum BUCCAL (19:18)
[2024-05-24] MEDS: trazodone 100 mg Tablet 200 MG PO (20:55)
[2024-05-24 22:26] VITALS: BP 135/80; PULSE 106; RESP 16; TEMP 36.6; O2SAT 99
[2024-05-25 06:00] VITALS: BP 112/75; PULSE 120; RESP 16; TEMP 36.2; O2SAT 97
[2024-05-25] MEDS: paliperidone ER 3 mg Tablet 6 MG PO (08:12)
[2024-05-25] MEDS: nicotine 4 mg lozenge MUCOUS MEM ×4 (08:13→17:40)
--- NOTE | 2024-05-25 09:25 | P.NPUPN_ITS ---
Subjective NPU 2 Subjective: Patient presents today reporting that things are doing well. She is excited about the prospect of discharging tomorrow. She reports she is doing fine on the medication and denies any side effects. She denied any new problems and is optimistic about things going well moving forward. Mental Status Exam 2 MSE Comments: This is a morbidly obese white female in hospital scrubs with limited grooming but adequate eye contact. No abnormal movements except for mild psychomotor retardation. Cooperative with exam in mild to moderate distress. Speech was mostly decreased rate and volume. Mood described as better, affect is congruent. Thought process, more organized. Thought content: patient denies suicidal or homicidal ideation, no delusions reported or noted, she denies current auditory or visual hallucinations. No current thoughts to hurt or kill self or others. No visual hallucinations, delusions, or paranoia reported. Experiences anxiety, particularly in relation to daily activities. Mood reported as good. Stress related to interactions with mother and need for medication. Attention and concentration are intact and memory appeared mostly reliable , but none were formally tested. She is alert and oriented x person. Insight and judgment are impaired. Impulse control is impaired. Vitals/I&O/Wt Last Vital Signs Temp 97.2 F L 05/25/24 06:00 Pulse 120 H 05/25/24 06:00 Resp 16 05/25/24 06:00 BP 112/75 05/25/24 06:00 Pulse Ox 97 05/25/24 06:00 O2 Del Method Room Air 05/24/24 14:00 Data NPU 05/14/24 16:08 05/14/24 16:08 A&P Assessment and plan (1) Psychosis: Qualifiers: Psychosis type: unspecified psychosis type Qualified Code(s): F29 - Unspecified psychosis not due to a substance or known physiological condition (2) Mild intellectual disability: (3) Anxiety disorder, unspecified: Plan This is a 43-year-old white woman with a history of intellectual disability and impulse control issues who presents after some aggressive behavior at home. There is a need for medication management, as the patient has been on medications such as Risperdal, trazodone, and Buspar in the past but currently not taking any and is not being seen at a clinic per her report. There is no history of psychiatric hospitalization or outpatient mental health services, and the patient has not engaged with a therapist or counselor previously. The patient is currently on a 96-hour hold, which is set to on May 21, 2024, indicating a need for stabilization and a plan for discharge. There is no evidence of aggression, paranoia, or self-injurious behavior, and the patient denies any current thoughts of self-harm or harm to others. 1. Continue current medications. Discontinue Risperdal and started Invega 3 mg p.o. daily. Increase Invega to 6 mg p.o. daily. Invega Sustenna 234 mg IM injection given 05/22/2024 and we will give the second loading dose on Monday prior to discharge. 2. Will obtain collateral information. 3. Continue individual, group and milieu therapy. 4. Continue every 15 minute checks for safety. 5. Will talk to mom for collateral information and to help with medical decision making. Patient's does not have a guardian but appears to have intellectual limitations. Involuntary Hold Information 2 96 Hour Hold: 96 Hour Involuntary Admission: Yes 96 Hour Hold Ending Date: 05/21/24 96 Hour Hold Ending Time: 15:24 Other Hold: Hold End Date: 05/24/24 Attestations NPU 2 Medical Necessity Statement*: Inpatient hospitalization is medically necessary and the clinically appropriate intervention at this time. We will monitor medications and make changes as indicated. Likely length of stay is 1 days. Coding Level of Care Code Acute Code for g Fwd Diagnoses Psychosis F29 Psychosis type: unspecified psychosis type Mild intellectual disability F70 Anxiety disorder, unspecified F41.9
[2024-05-25 14:00] VITALS: BP 147/94; PULSE 91; RESP 16; TEMP 36.7; O2SAT 100
[2024-05-25] MEDS: trazodone 100 mg Tablet 200 MG PO (20:01)
[2024-05-25] MEDS: nicotine 2 mg Gum BUCCAL (20:19)
[2024-05-25 22:00] VITALS: BP 147/88; PULSE 101; RESP 18; TEMP 36.7; O2SAT 95
[2024-05-26] MEDS: nicotine 4 mg lozenge MUCOUS MEM ×3 (03:45→07:58)
[2024-05-26 06:00] VITALS: BP 163/89; PULSE 99; RESP 18; TEMP 36.8; O2SAT 99
[2024-05-26] MEDS: paliperidone ER 3 mg Tablet 6 MG PO (07:58)
--- NOTE | 2024-05-26 08:43 | P.NPUDS_ITS ---
Diagnoses at Discharge Discharge Diagnosis (1) Psychosis: Status: Acute Qualifiers: Psychosis type: unspecified psychosis type Qualified Code(s): F29 - Unspecified psychosis not due to a substance or known physiological condition (2) Mild intellectual disability: Status: Acute (3) Anxiety disorder, unspecified: Status: Acute Reason for Visit Reason for Visit: 96 hold Involuntary Hold Information 96 Hour Hold: 96 Hour Involuntary Admission: Yes 96 Hour Hold Ending Date: 05/21/24 96 Hour Hold Ending Time: 15:24 Other Hold: Hold End Date: 05/21/24 Mental Status Exam MSE Comments: This is a morbidly obese white female in hospital scrubs with limited grooming but adequate eye contact. No abnormal movements except for mild psychomotor ret ardation. Cooperative with exam in mild to moderate distress. Speech was mostly decreased rate and volume. Mood described as better, affect is congruent. Thought process, more organized. Thought content: patient denies suicidal or homicidal ideation, no delusions reported or noted, she denies current auditory or visual hallucinations. No current thoughts to hurt or kill self or others. No visual hallucinations, delusions, or paranoia reported. Experiences anxiety, particularly in relation to daily activities. Mood reported as good. Stress related to interactions with mother and need for medication. Attention and concentration are intact and memory appeared mostly reliable , but none were formally tested. She is alert and oriented x person. Insight and judgment are impaired. Impulse control is impaired. Discharge Data Studies Completed and Pending: Laboratory Results WBC 10.44 10^3/uL (3. 29-11.43) 05/14/24 16:08 RBC 5.07 10^6/uL (3.8 5-5.65) 05/14/24 16:08 Hgb 13.70 g/dL (11.27 -16.99) 05/14/24 16:08 Hct 44.1 % (36-47) 05/14/24 16:08 MCV 87.0 fl (85-98) 05/14/24 16:08 MCH 27.0 pg (27-33) 05/14/24 16:08 MCHC 31.1 g/dL (30-55) 05/14/24 16:08 RDW 15.4 % (12.1-15.1 ) H 05/14/24 16:08 Plt Count 339 10^3/cmm (157 -399) 05/14/24 16:08 MPV 9.3 fL (7.4-10.4) 05/14/24 16:08 Neut % (Auto) 69.3 % 05/14/24 16:08 Lymph % (Auto) 21.5 % 05/14/24 16:08 [place] % (Auto) 5.7 % 05/14/24 16:08 Eos % (Auto) 2.1 % 05/14/24 16:08 Baso % (Auto) 0.7 % 05/14/24 16:08 Neut # (Auto) 7.24 10^3/uL (1.8 -7.7) 05/14/24 16:08 Lymph # (Auto) 2.2 10^3/uL (0.8- 4.8) 05/14/24 16:08 [place] # (Auto) 0.6 10^3/uL (0.2- 0.9) 05/14/24 16:08 Eos # (Auto) 0.2 10^3/uL (0.0- 0.8) 05/14/24 16:08 Baso # (Auto) 0.1 10^3/uL (0.0- 0.1) 05/14/24 16:08 Nucleated RBC % (a uto) 0 % 05/14/24 16:08 Nucleated RBCs # 0.0 /100WBC 05/14/24 16:08 Sodium 138 mmol/L (136-1 45) 05/14/24 16:08 Potassium 3.7 mmol/L (3.5-5 .1) 05/14/24 16:08 Chloride 103 mmol/L (98-10 7) 05/14/24 16:08 Carbon Dioxide 24 mmol/L (22-29) 05/14/24 16:08 Anion Gap 14.7 (5-19) 05/14/24 16:08 BUN 12 mg/dL (6-20) 05/14/24 16:08 Creatinine 0.7 mg/dL (0.5-0. 9) 05/14/24 16:08 GFR Calculation 90.5 mL/min (90-1 30) 05/14/24 16:08 Glucose 105 mg/dL (65-115 ) 05/14/24 16:08 Calculated Osmolal ity 286 mOsm/kg (285- 295) 05/14/24 16:08 Calcium 9.4 mg/dL (8.5-10 .5) 05/14/24 16:08 Total Bilirubin 0.2 mg/dL (0.15-1 .2) 05/14/24 16:08 AST 13 U/L (0-32) 05/14/24 16:08 ALT 11 U/L (0-33) 05/14/24 16:08 Alkaline Phosphata se 87 U/L (35-105) 05/14/24 16:08 Total Protein 8.1 g/dL (6.6-8.7 ) 05/14/24 16:08 Albumin 4.0 g/dL (3.5-5.2 ) 05/14/24 16:08 Globulin 4.1 g/dL (1.3-4.6 ) 05/14/24 16:08 HCG, Qual Negative (Negati ve) 05/14/24 16:08 Urine Color Red (Yellow) A 05/14/24 20:30 Urine Appearance Turbid (CLEAR) A 05/14/24 20:30 Urine pH 8.5 (5-7) A 05/14/24 20:30 Ur Specific Gravit y 1.014 (1.005-1.0 30) 05/14/24 20:30 Urine Protein 2+ (Negative) A 05/14/24 20:30 Urine Glucose (UA) Negative (Normal ) 05/14/24 20:30 Urine Ketones Negative (Negati ve) 05/14/24 20:30 Urine Blood 3+ (Negative) A 05/14/24 20:30 Urine Nitrate Negative (Negati ve) 05/14/24 20:30 Urine Bilirubin 1+ (Negative) H 05/14/24 20:30 Urine Urobilinogen 0.2 mg/dL (Negati ve) 05/14/24 20:30 Ur Leukocyte Regina ase 1+ (Negative) A 05/14/24 20:30 Urine RBC >100 /hpf (0-2) H 05/14/24 20:30 Urine WBC 11-20 /hpf (0-5) H 05/14/24 20:30 Ur Squamous Epith Cells 0-5 /hpf (0-5) 05/14/24 20:30 Amorphous Sediment Not Reportable 05/14/24 20:30 Urine Bacteria 1+ /hpf (NONE) H 05/14/24 20:30 Hyaline Casts 0-4 /lpf H 05/14/24 20:30 Salicylates < 0.3 mg/dL (3-10 ) L 05/14/24 16:08 Urine Opiates Scre en Negative ng/mL (N egative) 05/14/24 16:55 Acetaminophen < 5.0 ug/mL (10-3 0) L 05/14/24 16:08 Ur Barbiturates Sc reen Negative ng/mL (N egative) 05/14/24 16:55 Ur Phencyclidine S crn Negative ng/mL (N egative) 05/14/24 16:55 Ur Amphetamines Sc reen Negative ng/mL (N egative) 05/14/24 16:55 U Benzodiazepines Scrn Negative ng/mL (N egative) 05/14/24 16:55 Urine Cocaine Scre en Negative ng/mL (N egative) 05/14/24 16:55 U Marijuana (THC) Screen Negative ng/mL (N egative) 05/14/24 16:55 Ethyl Alcohol < 10 mg/dL (0-10) 05/14/24 16:08 Adenovirus (PCR) Not detected (NO T DETECT) 05/15/24 20:38 C. pneumoniae DNA (PCR) Not detected (NO T DETECT) 05/15/24 20:38 Coronavirus 229E ( PCR) Not detected (NO T DETECT) 05/15/24 20:38 Human Metapneumovi r PCR Not detected (NO T DETECT) 05/15/24 20:38 Influenza A (H1) P CR Not detected (NO T DETECT) 05/15/24 20:38 Influ A (H1/09) PC R Not detected (NO T DETECT) 05/15/24 20:38 Influenza A (H3) P CR Not detected (NO T DETECT) 05/15/24 20:38 Influenza Type A ( PCR) Not detected (NO T DETECT) 05/15/24 20:38 Influenza Type B ( PCR) Not detected (NO T DETECT) 05/15/24 20:38 M. pneumoniae (PCR ) Not detected (NO T DETECT) 05/15/24 20:38 Parainfluenza 1 (P CR) Not detected (NO T DETECT) 05/15/24 20:38 Parainfluenza 2 (P CR) Not detected (NO T DETECT) 05/15/24 20:38 Parainfluenza 3 (P CR) Not detected (NO T DETECT) 05/15/24 20:38 Parainfluenza 4 (P CR) Not detected (NO T DETECT) 05/15/24 20:38 RSV Type A (PCR) Not detected (NO T DETECT) 05/15/24 20:38 RSV Type B (PCR) Not detected (NO T DETECT) 05/15/24 20:38 Entero/Rhino (PCR) Not detected (NO T DETECT) 05/15/24 20:38 SARS-CoV-2 (PCR) Not detected (NO T DETECT) 05/15/24 20:38 Vitals: Last Vital Signs Temp 97.4 F L 05/21/24 05:23 Pulse 100 05/21/24 05:23 Resp 16 05/21/24 05:23 BP 137/89 05/21/24 05:23 Pulse Ox 98 05/21/24 05:23 O2 Del Method Room Air 05/21/24 05:23 Discharge Plan Discharge Patient Disposition: Home Condition: Stable Prescriptions: New Invega Sustenna 156 mg/mL syringe 156 mg IM Q30D 30 Days Qty: 1 2RF Rx Instructions: Next injection 06/21/2024 then as directed paliperidone [Invega] 6 mg tablet extended release 24 hr 6 mg PO DAILY Qty: 14 0RF Rx Instructions: Take for 2 weeks then stop. Patient on injection Continued trazodone tablet 200 mg PO BEDTIME 30 Days Qty: 30 1RF Discontinued risperidone [Risperdal] 2 mg Tablet 2 mg PO DAILY Discharge Orders: Discharge Order (Routine); Ordered 05/26/24 Ordered By: Gen Chinchilla Referrals: [facility] [place] [Other] - 05/30/24 9:30 am (Initial appointment with Thuy. Sue Gramajo FNP [Nurse Practitioner] - 05/30/24 9:00 am (Establishing care/hospital follow up. ) Discharge Diet: Regular Discharge Activity: Resume usual activity Patient Instructions: Paliperidone (By mouth), Paliperidone (By injection) (Invega Sustenna, Invega Trinza, Invega..., Psychotic Disorder (ED), Opioid Safety Discharge Attestations NPU Time Spent in Discharge Care*: less than 30 min Specific Discharge Activities: Specific discharge activities: educating patient, discussing with field case manager/social workers/dc planners, documenting/other paperwork and evaluating patient/reviewing data Coding Level of Care Code Acute Code for Chg Fwd Diagnoses Psychosis F29 Psychosis type: unspecified psychosis type Mild intellectual disability F70 Anxiety disorder, unspecified F41.9
[2024-05-26 11:57] VITALS: BP 163/89; PULSE 99; RESP 18; TEMP 36.8; O2SAT 99
--- NOTE | 2024-05-26 12:18 | PC.NURSE ---
INSTRUCTION FOR RISPERIDONE 2MG BID PER DOCTOR CELAYA VERBAL INSTRUCTIONS FOLLOWS: RISPERIDONE 2MG TWICE A DAY 05/27/24 TAKE ? TABLET OR 1MG IN MORNING, AND 1 TABLET OR 2MG AT BEDTIME. 05/28/24 TAKE ? TABLET OR 1MG IN MORNING, AND 1 TABLET OR 2MG AT BEDTIME. 05/29/24 TAKE ? TABLET OR 1MG IN MORNING, AND 1 TABLET OR 2MG AT BEDTIME. STARTING 05/30/24 2MG TABLET IN THE MORNING AND 2MGTABLET AT BEDTIME. IF SHENA IS TO SEDATED TAKE 1MG (1/2) TABLET IN MORNING AND 3MG (1.5) TABLET AT BEDTIME OR CAN TAKE TWO OF THE 2MG TABLETS AT BEDTIME FOR THE DAILY DOSE. MEDICATION CHANGES MADE DO TO PT INSURANCE WILL NOT APPROVE THE PALIPERDONE 6MG TABLET OR THE PALIPERDONE PALMITATE INJECTION. VERBAL ORDER RECIEVED FROM DR. CELAYA. PRESCRIPTION FOR RISPERIDONE 2MG BID FOR 30 DAYS WITH ONE REFILL AND TRAZODONE 200MG AT BEDTIME FOR 30 DAYS WITH ONE REFILL CALLED INTO [facility] AT [facility] [id number] PHONE #[phone].
== END 2024-05-26 13:35 | disposition home or self-care (01) | DRG 885 ==
LOC: ER 16:47 → NP 17:02
PROVIDERS: Admitting Provider Psychiatry & Neurology Psychiatry; Emergency Provider Physician Assistant; Visit Provider Psychiatry & Neurology Psychiatry
DX: F29 Unspecified psychosis not due to a substance or known physiological condition (principal); Z68.43 Body mass index [BMI] 50.0-59.9, adult; F70 Mild intellectual disabilities; F41.9 Anxiety disorder, unspecified; E66.01 Morbid (severe) obesity due to excess calories; F17.210 Nicotine dependence, cigarettes, uncomplicated
CPT/HCPCS: 36415; 80053; 80306; 80307; 81001; 84703; 85025; 87086; 87486; 87581; 87633; 90471; 90686; 96372; 97150; 97165; 99285

== ENCOUNTER → 2024-05-30 09:11 | Outpatient (BNVA) | payer MEDICAID, SELFPAY | PROVIDERS: Visit Provider Nurse Practitioner | DX: R30.0 Dysuria (principal); I10 Essential (primary) hypertension | CPT/HCPCS: 81000; 87086 ==

== ENCOUNTER → 2024-07-11 09:43 | Outpatient (BNVA) | payer SELFPAY | PROVIDERS: PCP Nurse Practitioner; Visit Provider Psychiatry & Neurology Psychiatry | DX: Z79.899 Other long term (current) drug therapy (principal) | CPT/HCPCS: 80061; 83036; 84443 ==